=== PATIENT | female | born 1995 | race African-American/Black ===

== ENCOUNTER 2017-01-07 14:40 | Emergency (ER) | payer OTHER ==
[~2017-01-07] VITALS: Ht 160 cm; Wt 103.0 kg
[2017-01-07 15:00] LABS: URINE BILIRUBIN 1+ (Negative); URINE BLOOD NEGATIVE (Negative); URINE COLOR YELLOW; URINE GLUCOSE-RANDOM* NEGATIVE (Negative); URINE KETONES 3+ (Negative); URINE LEUKOCYTES-REFLEX NEGATIVE (Negative); URINE PROTEIN (DIPSTICK) 1+ (Negative); URINE SPECIFIC GRAVITY 1.025 (1.003-1.035)
[2017-01-07 15:04] LABS: ICTOTEST (BILI CONFIRMATORY) Positive (Negative)
[2017-01-07 15:16] LABS: ABSOLUTE NEUTROPHILS 5.8 thou/uL (1.4-8.2); BASOPHILS 0.7 % (0.0-2.0); EOSINOPHILS 0.4 % (0.0-3.0); HEMATOCRIT 35.2 % (37.0-47.0); HEMOGLOBIN 11.2 gm/dL (12.0-15.0); LYMPHOCYTES 16.8 % (24.0-44.0); MCH 21.7 pg (26.0-34.0); MCHC 31.7 g/dL (28.0-37.0); MCV 68.4 fL (80.0-100.0); MONOCYTES 8.4 % (1.0-8.0); PLATELET COUNT 305 thou/uL (150-400); POLYS 73.7 % (36.0-66.0); RBC 5.14 mil/uL (4.20-5.00); RDW 17.6 % (10.5-14.5); WBC 7.9 thou/uL (4.0-11.0)
[2017-01-07 15:18] LABS: MANUAL DIFF NO
[2017-01-07 15:25] LABS: CASTS None Seen /LPF (None Seen); CRYSTALS None Seen /LPF (None Seen); SQUAMOUS 4-10 Moderate /LPF (0-3); URINE RBC None Seen /HPF (0-2); URINE WBC-REFLEX 6-15 Few /HPF (0-5)
[2017-01-07 15:25] LABS: CALCIUM 9.1 mg/dL (8.5-10.1); CREATININE 0.7 mg/dL (0.6-1.0); POTASSIUM 3.6 mmol/L (3.5-5.1)
[2017-01-07 15:40] LABS: HYPOCHROMASIA 1+
[2017-01-07 15:41] LABS: ANISOCYTOSIS 1+; MICROCYTES 1+
[2017-01-07] MEDS ORDERED: ZOFRAN ODT4 MG PO (16:49)
[2017-01-07 17:30] VITALS: BP 114/71
== END 2017-01-07 17:58 | disposition home or self-care (01) ==
LOC: ER 14:40
PROVIDERS: Nurse Practitioner Family
DX: O26.891 Other specified pregnancy related conditions, first trimester (principal); O21.9 Vomiting of pregnancy, unspecified; Z3A.01 Less than 8 weeks gestation of pregnancy